=== PATIENT | male | born 1965 | race African-American/Black ===

== ENCOUNTER 2016-10-12 10:22 | Emergency (ER) | payer MEDICAID, OTHER ==
[~2016-10-12] VITALS: Ht 170.2 cm; Wt 95.5 kg
[~2016-10-12 10:22] MED LIST: ATEN50TA PO; DESI50TA PO; FLUR30CA13 PO; QUET300T2 PO
[2016-10-12] MEDS ORDERED: HYDROCODONE/ACETAMINOPHEN 10-325 MG TABLET PO ONE (11:15)
[2016-10-12] MEDS ORDERED: CefTRIAXone SODIUM 1 GM/VIAL IM ONE (11:15)
[2016-10-12] MEDS ORDERED: LIDOCAINE HCL/PF 1% 2 ML VIAL IM ONE (11:15)
[2016-10-12 12:06] VITALS: BP 121/84
== END 2016-10-12 12:08 | disposition home or self-care (01) ==
LOC: EMS 10:23
DX: L03.312 Cellulitis of back [any part except buttock and flank] (principal); I10 Essential (primary) hypertension; E78.00 Pure hypercholesterolemia, unspecified
CPT/HCPCS: 96372; 99283; J0696; J3490

== ENCOUNTER 2020-03-28 13:31 | Inpatient (IN) | payer MEDICAID, OTHER ==
[~2020-03-28] VITALS: Ht 175.3 cm; Wt 75.0 kg
[~2020-03-28 13:31] MED LIST changes: +ATEN-72 PO; -ATEN50TA PO
[2020-03-28] MEDS ORDERED: QUET200T PO (16:50)
[2020-03-28] MEDS ORDERED: SERT100T12 PO (16:50)
[2020-03-28] MEDS ORDERED: BUPR75 PO (16:50)
[2020-03-28] MEDS ORDERED: LOPERAMIDE HCL 2 MG CAPSULE PO PRN (18:00)
[2020-03-28] MEDS ORDERED: MAGNESIUM HYDROXIDE SUSPENSION 30 ML UDCUP PO PRN (18:00)
[2020-03-28] MEDS ORDERED: TUBERCULIN, PURIFIED PROTEIN DERIVATIVE 5 TU/0.1 ML SYRINGE ID ONE (18:00)
[2020-03-28] MEDS ORDERED: LORazepam 2 MG TABLET PO PRN (18:00)
[2020-03-28] MEDS ORDERED: ACETAMINOPHEN 325 MG TABLET PO PRN (18:00)
[2020-03-28] MEDS ORDERED: PROMETHAZINE HCL 25 MG TABLET PO PRN (18:00)
[2020-03-28] MEDS ORDERED: HydrOXYzine PAMOATE 50 MG CAPSULE PO PRN (18:00)
[2020-03-28] MEDS ORDERED: GuaiFENesin/D-METHORPHAN [SUGAR-FREE] 200-20MG/10 ML SYRUP UDCUP PO PRN (18:00)
[2020-03-28] MEDS ORDERED: QUEtiapine FUMARATE 100 MG TABLET PO PRN (18:00)
[2020-03-28] MEDS ORDERED: ZOLPIDEM TARTRATE 10 MG TABLET PO PRN (18:00)
[2020-03-28] MEDS ORDERED: MAG HYDROX/AL HYDROX/SIMETH ES 30 ML SUSPENSION UDCUP PO PRN (18:00)
[2020-03-28 19:11] LABS: BASOPHILS % (AUTO) 0.3 % (0.0-2.0); HEMATOCRIT 43.6 % (41-53); HEMOGLOBIN 14.3 g/dL (13.5-17.5); LYMPHOCYTES # (AUTO) 2.9 K/uL (1.0-4.8); LYMPHOCYTES % (AUTO) 36.1 % (22.0-44.0); MEAN CORPUSCULAR HEMOGLOBIN 28.7 pg (26.0-34.0); MEAN CORPUSCULAR HGB CONC 32.7 G/dL (31.0-37.0); MEAN CORPUSCULAR VOLUME 88 fL (80-100); MONOCYTES # (AUTO) 0.7 K/uL (0.1-1.0); NEUTROPHILS # (AUTO) 4.2 K/uL (1.8-7.7); NEUTROPHILS % (AUTO) 52.6 % (40.0-70.0); PLATELET COUNT (AUTO) 212 K/uL (150-450); RED BLOOD CELL COUNT(AUTO) 4.96 MIL/uL (4.50-5.90); RED CELL DISTRIBUTION WIDTH 13.2 % (11.5-14.5)
[2020-03-28 19:26] LABS: ANION GAP 7 mmol/L (8-16); CALCIUM, TOTAL 9.2 mg/dL (8.8-10.5); CARBON DIOXIDE 29 mmol/L (22-29); CHLORIDE 104 mmol/L (98-107); CREATININE 1.23 mg/dL (0.60-1.30); GLOMERULAR FILTR. RATE CALC > 60 mL/min (>60); GLUCOSE,RANDOM 130 mg/dL (70-110); POTASSIUM 4.1 mmol/L (3.5-5.1); SODIUM SERUM 140 mmol/L (136-145); UREA NITROGEN, BLOOD 11 mg/dL (7-18)
[2020-03-28 19:30] LABS: COVID AG,FIA SOURCE NASOPHARYNGEAL
[2020-03-28 19:36] LABS: ALANINE AMINOTRANSFERASE 23 U/L (12-78); ALBUMIN 3.4 g/dL (3.4-5.0); ALKALINE PHOSPHATASE 73 U/L (46-116); ASPARTATE AMINOTRANSFERASE 14 U/L (15-37); BILIRUBIN,TOTAL 0.2 mg/dL (0.1-1.0); TOTAL PROTEIN, SERUM 7.7 g/dL (6.4-8.2)
[2020-03-28 22:15] VITALS: BP 118/82
[2020-03-28] MEDS: THIAMINE 100 MG TABLET PO SCH (22:30)
[2020-03-28] MEDS: SERTRALINE HCL 100 MG TABLET PO SCH (22:30)
[2020-03-28] MEDS: QUEtiapine FUMARATE 200 MG TABLET PO SCH (22:30)
[2020-03-28] MEDS: LORazepam 0.5 MG TABLET PO SCH (22:31)
[2020-03-29 07:47] LABS: HEMOGLOBIN A1C 6.4 % (3.8-5.6)
[2020-03-29 07:49] LABS: CHOL/HDL RATIO 4.6 (4.2-7.3); FREE T4 (FREE THYROXINE) 0.89 ng/dL (0.76-1.46); THYROID STIMULATING HORMONE 2.49 uIU/mL (0.36-3.74)
[2020-03-29 08:00] VITALS: BP 106/76
[2020-03-29] MEDS: THIAMINE 100 MG TABLET PO SCH ×2 (08:59→16:26)
[2020-03-29] MEDS: MULTIVITAMINS WITH MINERALS, THERAPEUTIC TABLET PO SCH (08:59)
[2020-03-29] MEDS: OMEGA-3/DHA/EPA/FISH OIL 1,000 MG CAPSULE PO SCH (08:59)
[2020-03-29] MEDS: FOLIC ACID 1 MG TABLET PO SCH (08:59)
[2020-03-29] MEDS: LORazepam 0.5 MG TABLET PO SCH ×4 (08:59→20:32)
[2020-03-29 16:05] VITALS: BP 93/63
[2020-03-29] MEDS: QUEtiapine FUMARATE 200 MG TABLET PO SCH (20:32)
[2020-03-29] MEDS: SERTRALINE HCL 100 MG TABLET PO SCH (20:32)
[2020-03-30] MEDS: THIAMINE 100 MG TABLET PO SCH ×2 (08:43→16:32)
[2020-03-30] MEDS: OMEGA-3/DHA/EPA/FISH OIL 1,000 MG CAPSULE PO SCH (08:43)
[2020-03-30] MEDS: FOLIC ACID 1 MG TABLET PO SCH (08:43)
[2020-03-30] MEDS: MULTIVITAMINS WITH MINERALS, THERAPEUTIC TABLET PO SCH (08:43)
[2020-03-30] MEDS: LORazepam 0.5 MG TABLET PO SCH ×4 (08:44→20:14)
[2020-03-30 09:41] VITALS: BP 120/76
[2020-03-30 16:05] VITALS: BP 113/80
[2020-03-30] MEDS: QUEtiapine FUMARATE 200 MG TABLET PO SCH (20:14)
[2020-03-30] MEDS: SERTRALINE HCL 100 MG TABLET PO SCH (20:14)
[2020-03-31 09:10] VITALS: BP 105/59
[2020-03-31] MEDS: FOLIC ACID 1 MG TABLET PO SCH (10:24)
[2020-03-31] MEDS: THIAMINE 100 MG TABLET PO SCH ×2 (10:24→16:00)
[2020-03-31] MEDS: LORazepam 0.5 MG TABLET PO SCH ×4 (10:24→20:09)
[2020-03-31] MEDS: OMEGA-3/DHA/EPA/FISH OIL 1,000 MG CAPSULE PO SCH (10:24)
[2020-03-31] MEDS: MULTIVITAMINS WITH MINERALS, THERAPEUTIC TABLET PO SCH (10:24)
[2020-03-31 16:30] VITALS: BP 109/62
[2020-03-31] MEDS: SERTRALINE HCL 100 MG TABLET PO SCH (20:09)
[2020-03-31] MEDS: QUEtiapine FUMARATE 200 MG TABLET PO SCH (20:09)
[2020-04-01] MEDS: FOLIC ACID 1 MG TABLET PO SCH (08:06)
[2020-04-01] MEDS: LORazepam 0.5 MG TABLET PO SCH ×2 (08:06→12:05)
[2020-04-01] MEDS: THIAMINE 100 MG TABLET PO SCH (08:06)
[2020-04-01] MEDS: OMEGA-3/DHA/EPA/FISH OIL 1,000 MG CAPSULE PO SCH (08:06)
[2020-04-01] MEDS: MULTIVITAMINS WITH MINERALS, THERAPEUTIC TABLET PO SCH (08:06)
[2020-04-01 08:24] VITALS: BP 120/45
[2020-04-01] MEDS ORDERED: FOLI-130 PO (11:31)
[2020-04-01] MEDS ORDERED: MULT-1239 PO (11:34)
[2020-04-01] MEDS ORDERED: OMEG-12 PO (11:34)
[2020-04-01] MEDS ORDERED: THIA100T80 PO (11:34)
[2020-04-01 12:03] LABS: COVID AG,FIA SOURCE NASOPHARYNGEAL
== END 2020-04-01 12:15 | disposition home or self-care (01) | DRG 751 ==
LOC: EMS 13:31 → 3EI 17:53
PROVIDERS: ADMIT Psychiatry & Neurology Psychiatry; ATTEND Psychiatry & Neurology Psychiatry
DX: F33.3 Major depressive disorder, recurrent, severe with psychotic symptoms (principal); Z20.828 Contact with and (suspected) exposure to other viral communicable diseases; E78.00 Pure hypercholesterolemia, unspecified; F17.210 Nicotine dependence, cigarettes, uncomplicated; E78.5 Hyperlipidemia, unspecified; I10 Essential (primary) hypertension; G47.00 Insomnia, unspecified; J44.9 Chronic obstructive pulmonary disease, unspecified; K21.9 Gastro-esophageal reflux disease without esophagitis; M19.90 Unspecified osteoarthritis, unspecified site; F43.10 Post-traumatic stress disorder, unspecified; M54.5 Low back pain
CPT/HCPCS: 83036; 84439; 84443; 86592; 87426; G0480